=== PATIENT | female | born 1940 | race Caucasian/White ===

== ENCOUNTER 2019-04-16 14:55 | Outpatient (CLI) | payer MEDICARE, OTHER ==
--- NOTE | 2019-04-17 08:25 | Mammography Report ---
Reason: SCREENING MAMMO Procedure Date: 04/16/2019 Accession Number: [id number] / [id number] Procedure: MOOSE - Screening Mammo w/Sigifredo CPT Code: FULL RESULT: EXAM: Screening Mammo w/Sigifredo DATE: 04/16/2019 3:26 PM CLINICAL HISTORY: Screening encounter. History of late childbearing. TECHNIQUE: (B) - Bilateral CC and MLO views were obtained. COMPARISON: 05/27/2015 through 11/11/2009. PARENCHYMAL PATTERN: (A) - The breast(s) demonstrate(s) scattered fibroglandular densities. FINDINGS: Coarse typically benign appearing calcifications are again noted. There are no suspicious masses, calcifications, or areas of distortion. IMPRESSION: Benign findings. BI-RADS category 2. RECOMMENDATION: (ANNUAL) - Recommend routine annual screening mammography. BI-RADS CATEGORY: (2) - Benign Findings. STANDARD QUALIFYING STATEMENTS: 1. This examination was not reviewed with the aid of Computer-Aided Detection (CAD). 2. A negative or benign imaging report should not preclude biopsy if clinically suspicious findings are present. 3. Dense breasts may obscure an underlying neoplasm. 4. This examination was reviewed with the aid of 3D breast imaging (tomosynthesis).
== END 2019-04-16 14:56 | disposition home or self-care (01) ==
LOC: DI 14:55
DX: Z12.31 Encounter for screening mammogram for malignant neoplasm of breast (principal)
CPT/HCPCS: 77063; 77067

== ENCOUNTER 2020-06-14 18:28 | Outpatient (CLI) | payer MEDICARE, OTHER | END 2020-06-14 18:29 | disposition critical access hospital (66) | LOC: EMS 18:28 | PROVIDERS: ATTEND Surgery | DX: R55 Syncope and collapse (principal); R11.0 Nausea | CPT/HCPCS: A0425; A0427 ==

== ENCOUNTER 2020-06-14 18:44 | Observation (INO) | payer MEDICARE, OTHER ==
[2020-06-14 19:28] LABS: BASOPHILS # (AUTO) 0.1 10^3/uL (0.0-0.1); BASOPHILS % (AUTO) 0.5 %; EOSINOPHILS % (AUTO) 0.2 %; HGB - HEMOGLOBIN 12.8 g/dL (12.0-16.0); LYMPHOCYTES # (AUTO) 1.1 10^3/uL (1.5-3.5); MEAN CORPUSCULAR HEMOGLOBIN 30.5 pg (27.0-31.0); MEAN CORPUSCULAR HGB CONC 32.7 g/dL (32.0-36.0); MEAN CORPUSCULAR VOLUME 93.3 fL (81.0-99.0); MEAN PLATELET VOLUME 9.5 fL (7.9-10.8); MONOCYTES # (AUTO) 0.6 10^3/uL (0.0-1.0); MONOCYTES % (AUTO) 5.4 %; NEUTROPHILS # (AUTO) 9.4 10^3/uL (1.5-6.6); NEUTROPHILS % (AUTO) 83.5 %; PLT - PLATELET COUNT 226 10^3/uL (130-450); RED CELL DISTRIBUTION WIDTH 12.3 % (12.0-15.0); WHITE BLOOD COUNT 11.3 x10^3/uL (4.8-10.8)
[2020-06-14] MEDS ORDERED: ONDANSETRON 4 MG/2 ML VIAL IVP STA (19:30)
--- NOTE | 2020-06-14 19:33 | ED Physician Documentation ---
PD HPI SYNCOPE - Stated complaint Stated Complaint: SYNCOPE - Chief complaint Chief Complaint: Neuro - History obtained from History obtained from: Patient - History of Present Illness Witnessed: Unwitnessed ( heard her fall from the next room and was in there within moments and she was on the floor with her legs up on the chair talkative but seeming weak and complained of nausea. No headache or chest pain or belly pain) Timing - onset: How many minutes ago (20), Today (just [employer]) Duration: Seconds (Her heard her fall from the next room and came in to see her on the floor with the legs up on the chair. She was talkative and coherent but complained of nausea.) Preceding symptoms: None. No: Headache, Chest pain, Palpitations, Dyspnea, Abdominal pain, Nausea / vomiting Associated symptoms: No: Seizure Contributing factors: No: Recent med change, Decreased PO intake, Noxious stimulae Injury occurred: No: Head injury (she fainted while sitting in chair and awoke on floor, so presume would have hit head to some degree.), Neck injury Similar symptoms before: Has not had sx before Recently seen: Not recently seen Review of Systems Constitutional: denies: Fever, Chills Nose: denies: Rhinorrhea / runny nose, Congestion Throat: denies: Sore throat Cardiac: denies: Chest pain / pressure, Palpitations, Pedal edema, Calf pain Respiratory: denies: Dyspnea, Cough, Wheezing GI: reports: Nausea (onset after awakening on floor). denies: Abdominal Pain : denies: Dysuria Skin: denies: Rash Musculoskeletal: denies: Neck pain, Back pain Neurologic: reports: Generalized weakness (after the syncope). denies: Focal weakness, Difficulty speaking, Altered mental status, Headache Psychiatric: denies: Anxiety, Insomnia Endocrine: denies: Weight loss PD PAST MEDICAL HISTORY - Past Medical History Cardiovascular: High cholesterol, Other (previously discovered bundle branch block on outpt office test) Respiratory: None Neuro: None Endocrine/Autoimmune: None GI: None : None HEENT: None Psych: None Musculoskeletal: Osteoarthritis Derm: None - Past Surgical History Past Surgical History: No HEENT: Cataracts, Tonsil/Adenoidectomy - Present Medications Home Medications: Ambulatory Orders Medication Instructions Recorded Confirmed Spironolactone 25 mg PO BID 01/07/14 06/14/20 - Allergies Allergies/Adverse Reactions: Allergies Allergy/AdvReac Type Severity Reaction Status Date / Time No Known Drug Allergies Allergy Verified 06/14/20 18:53 - Social History Does the pt smoke?: No Smoking Status: Never smoker Does the pt drink ETOH?: Yes Does the pt have substance abuse?: No - Immunizations Immunizations are current?: Yes - POLST Patient has POLST: No PD ED PE NORMAL - Vitals Vital signs reviewed: Yes - General General: Alert and oriented X 3, Well developed/nourished, Other (appear uncomfortable due to nausea, with some pallor. ) - HEENT HEENT: Atraumatic, PERRL, EOMI (no nystagmus), Moist mucous membranes, Pharynx benign - Neck Neck: Supple, no meningeal sign, No bony TTP, No adenopathy - Cardiac Cardiac: RRR, No murmur - Respiratory Respiratory: Clear bilaterally, Other (no chestwall tenderness) - Abdomen Abdomen: Soft, Non tender - Female Female : Deferred - Rectal Rectal: Deferred - Back Back: No CVA TTP - Derm Derm: Normal color, Warm and dry - Extremities Extremities: No tenderness to palpate, Normal ROM s pain, No edema, No calf tenderness / cord - Neuro Neuro: Alert and oriented X 3, art objects supervisor 2-12 intact, No motor deficit, No sensory deficit, Normal speech Eye Opening: Spontaneous Motor: Obeys Commands Verbal: Oriented GCS Score: 15 Results - Vitals Vitals: Vital Signs - 24 hr 06/14/20 06/14/20 18:53 19:01 Temperature 36.6 C Heart Rate 86 80 Respiratory 16 12 Rate Blood Pressure 150/65 H 140/56 H O2 Saturation 99 100 Oxygen O2 Source Room air - EKG (time done) 18:57 Rate: Rate (enter#) (83) Rhythm: NSR Intervals: Prolonged SC, LBBB. No: Prolonged QT QRS: Normal Ischemia: Normal ST segments, Non specific changes - Labs Labs: Laboratory Tests 06/14/20 06/14/20 06/14/20 19:18 19:18 19:18 WBC 11.3 H RBC 4.20 Hgb 12.8 Hct 39.2 MCV 93.3 MCH 30.5 MCHC 32.7 RDW 12.3 Plt Count 226 MPV 9.5 Neut # (Auto) 9.4 H Lymph # (Auto) 1.1 L Archer # (Auto) 0.6 Eos # (Auto) 0.0 Baso # (Auto) 0.1 Absolute Nucleated RBC 0.00 Nucleated RBC % 0.0 D-Dimer 417.6 H Sodium 135 Potassium 4.2 Chloride 98 L Carbon Dioxide 25 Anion Gap 12.0 BUN 34 H Creatinine 0.9 Estimated GFR (MDRD) 61 L Glucose 103 H Lactic Acid Calcium 9.6 Total Bilirubin 0.8 AST 22 ALT 20 Alkaline Phosphatase 61 Troponin I High Sens Total Protein 7.3 Albumin 4.5 Globulin 2.8 Albumin/Globulin Ratio 1.6 Lipase 35 Urine Color Urine Clarity Urine pH Ur Specific [place] Urine Protein Urine Glucose (UA) Urine Ketones Urine Occult Blood Urine Nitrite Urine Bilirubin Urine Urobilinogen Ur Leukocyte Esterase Urine RBC Urine WBC Ur Squamous Epith Cells Urine Bacteria Ur Microscopic Review Urine Culture Comments 06/14/20 06/14/20 06/14/20 19:18 19:18 20:00 WBC RBC Hgb Hct MCV MCH MCHC RDW Plt Count MPV Neut # (Auto) Lymph # (Auto) Archer # (Auto) Eos # (Auto) Baso # (Auto) Absolute Nucleated RBC Nucleated RBC % D-Dimer Sodium Potassium Chloride Carbon Dioxide Anion Gap BUN Creatinine Estimated GFR (MDRD) Glucose Lactic Acid 1.0 Calcium Total Bilirubin AST ALT Alkaline Phosphatase Troponin I High Sens 6.1 7.5 Total Protein Albumin Globulin Albumin/Globulin Ratio Lipase Urine Color Urine Clarity Urine pH Ur Specific [place] Urine Protein Urine Glucose (UA) Urine Ketones Urine Occult Blood Urine Nitrite Urine Bilirubin Urine Urobilinogen Ur Leukocyte Esterase Urine RBC Urine WBC Ur Squamous Epith Cells Urine Bacteria Ur Microscopic Review Urine Culture Comments 06/14/20 21:19 WBC RBC Hgb Hct MCV MCH MCHC RDW Plt Count MPV Neut # (Auto) Lymph # (Auto) Archer # (Auto) Eos # (Auto) Baso # (Auto) Absolute Nucleated RBC Nucleated RBC % D-Dimer Sodium Potassium Chloride Carbon Dioxide Anion Gap BUN Creatinine Estimated GFR (MDRD) Glucose Lactic Acid Calcium Total Bilirubin AST ALT Alkaline Phosphatase Troponin I High Sens Total Protein Albumin Globulin Albumin/Globulin Ratio Lipase Urine Color YELLOW Urine Clarity HAZY Urine pH 6.0 Ur Specific [place] 1.020 Urine Protein NEGATIVE Urine Glucose (UA) NEGATIVE Urine Ketones 15 H Urine Occult Blood NEGATIVE Urine Nitrite POSITIVE H Urine Bilirubin NEGATIVE Urine Urobilinogen 0.2 (NORMAL) Ur Leukocyte Esterase NEGATIVE Urine RBC 0-5 Urine WBC 0-3 Ur Squamous Epith Cells FEW Squamous Urine Bacteria Many H Ur Microscopic Review INDICATED Urine Culture Comments INDICATED - Rads (name of study) chest xray Radiology: Prelim report reviewed (no acute process), See rad report chest CT-A Radiology: Prelim report reviewed (no PE. Left apical spiculated mass c/w bronchogenic CA with small nodes in chest. ), See rad report PD MEDICAL DECISION MAKING - ED course Complexity details: reviewed results (Elevated D-dimer. Normal initial troponin though soon after the event. She is still within the 2-hour timeframe even with the repeat troponin test. Not entirely conclusive. Her chest CT did not show any PEs but incidental lung tumor. Consider possible UTI but she does not appear septic.), re-evaluated patient (Improving but still persistent nausea. No vertigo nor worsening with head movement. Consider part of the process leading to syncope versus mild concussive from fall, though no headache. ), considered differential (Given the abrupt syncope without any preceding unusual feelings or symptoms, I would be concerned for potential seizure though the patient was lucid and without any confusion right after, or cardiovascular. Will check for troponin, D-dimer, heart rhythm), d/w patient ED course: I did tell the patient and her about the CT findings of left lung mass concerning for cancer and will need her PMD to orchestrate further workup for that. No apparent cause for the syncope at this point. Consider dysrhythmia. PE has been ruled out. Initial troponin not suggesting [place] but early on after event and syncope can be a presentation for that. Her underlying LBBB precludes evaluating for ischemic changes. Repeated troponins may be useful. Departure - Departure Disposition: ED Place in Observation Clinical Impression: Nausea, Generalized weakness, Abnormal CT scan, chest, Left bundle branch block Episode of syncope Qualifiers: Syncope type: unspecified Qualified Code(s): R55 - Syncope and collapse Condition: Stable Record reviewed to determine appropriate education?: Yes
--- NOTE | 2020-06-14 19:36 | XRAY Report ---
PROCEDURE: Chest 1 View X-Ray INDICATIONS: syncope TECHNIQUE: One view of the chest was acquired. COMPARISON: None FINDINGS: Surgical changes and devices: None. Lungs and pleura: No pleural effusions or pneumothorax. Lungs are clear. Mediastinum: Mediastinal contours appear normal. Heart size is normal. Bones and chest wall: No suspicious bony lesions. Overlying soft tissues appear unremarkable. IMPRESSION: No evidence acute pulmonary process. Reviewed by: Armaan Riggs MD on 06/14/2020 7:35 PM PDT Approved by: Armaan Riggs MD on 06/14/2020 7:35 PM PDT Station ID: [id number]
[2020-06-14 19:38] LABS: ALBUMIN 4.5 g/dL (3.2-5.5); ALBUMIN/GLOBULIN RATIO 1.6 (1.0-2.2); BILIRUBIN,TOTAL 0.8 mg/dL (0.2-1.0); CALCIUM 9.6 mg/dL (8.5-10.3); CREATININE 0.9 mg/dL (0.4-1.0); TOTAL PROTEIN 7.3 g/dL (6.7-8.2)
[2020-06-14] MEDS ORDERED: SODIUM CHLORIDE 0.9% 1,000 ML IV STA (19:49)
[2020-06-14] MEDS ORDERED: IOVERSOL 320 100 ML VIAL IVP ONE ×2 (20:02→20:31)
[2020-06-14] MEDS ORDERED: PROMETHAZINE INJ 6.25 MG in SODIUM CHLORIDE 0.9% 50 ML IV STA (20:12)
[2020-06-14] MEDS ORDERED: PROMETHAZINE 25 MG/1 ML VIAL ONE (20:26)
--- NOTE | 2020-06-14 20:47 | CT Report ---
PROCEDURE: ANGIO CHEST W/WO INDICATIONS: syncopal episode; elevated d-dimer CONTRAST: IV CONTRAST: Optiray 320 ml: 100 PO CONTRAST: *NO PO CONTRAST TECHNIQUE: After the administration of intravenous contrast, 2 mm thick sections acquired from the pulmonary api jacky to the posterior costophrenic angles. 3-dimensional maximum intensity projection (MIP) coronal a nd sagittal reformats were then acquired through the thorax. For radiation dose reduction, the follow ing was used: automated exposure control, adjustment of mA and/or kV according to patient size. COMPARISON: None FINDINGS: Image quality: Excellent. Pulmonary arteries: Pulmonary arteries are normal in size, and demonstrate no intraluminal filling d efects to suggest central pulmonary embolism. Lungs and pleura: There is a spiculated medial left apical lung mass consistent with a primary bronc hogenic carcinoma. It measures 2.6 cm in diameter. Reference image 58/6. There are numerous small pul monary nodules present throughout the left upper lobe, consistent with multifocal malignancy. Lungs a re clear. No pleural effusions or pneumothorax. Central and peripheral airways are patent. Mediastinum: Heart size is normal, without pericardial effusion. No mediastinal or hilar adenopathy . Thoracic aorta is normal in caliber and enhancement. Esophagus is normal in caliber, without hiat al hernia. Bones and chest wall: No suspicious bony lesions. Ribs and thoracic spine appear intact throughout. The thyroid is normal. No axillary or supraclavicular adenopathy. Abdomen: Visualized upper abdominal solid organs appear normal in the early arterial phase of enhanc ement. IMPRESSION: 1. No evidence acute pulmonary emboli. 2. 2.6 cm spiculated mass, medial left apex, consistent with primary bronchogenic carcinoma. 3. Numerous other small pulmonary nodules in the left upper lobe are suspicious for metastatic spread of tumor. Reviewed by: Armaan Riggs MD on 06/14/2020 8:46 PM PDT Approved by: Armaan Riggs MD on 06/14/2020 8:46 PM PDT Station ID: [id number]
[2020-06-14 21:29] LABS: BILIRUBIN,URINE NEGATIVE (NEGATIVE); GLUCOSE, URINE (UA) NEGATIVE (NEGATIVE); KETONES,URINE (UA) 15 mg/dL (NEGATIVE); LEUKOCYTE ESTERASE, URINE NEGATIVE (NEGATIVE); NITRITE,URINE POSITIVE (NEGATIVE); OCCULT BLOOD,URINE NEGATIVE (NEGATIVE); PROTEIN,URINE NEGATIVE (NEGATIVE); UROBILINOGEN,URINE 0.2 (NORMAL) E.U./dL (NORMAL)
[2020-06-14 21:31] LABS: CLARITY,URINE HAZY (CLEAR)
[2020-06-14] MEDS ORDERED: ONDANSETRON ODT 4 MG TABLET TL PRN (21:34)
[2020-06-14] MEDS ORDERED: SODIUM CHLORIDE FLUSH 0.9% 10 ML SYRINGE IVP PRN (21:34)
[2020-06-14] MEDS ORDERED: oxyCODONE 5 MG TABLET PO PRN (21:34)
[2020-06-14] MEDS ORDERED: ONDANSETRON 4 MG/2 ML VIAL IVP PRN (21:34)
[2020-06-14] MEDS ORDERED: ACETAMINOPHEN 325 MG TABLET PO PRN (21:34)
[2020-06-14 21:35] LABS: BACTERIA,URINE Many /HPF (None Seen); RBC,URINE 0-5 /HPF (0-5); SQUAMOUS EPITHELIAL CELL,UR FEW Squamous (<= Few)
--- NOTE | 2020-06-14 21:41 | HISTORY & PHYSICAL EXAMINATION ---
Chief Complaint - Chief Complaint Chief Complaint: Passing out at home History of Present Illness - Admitted From Admitted From:: Home via EMS - History Obtained From Records Reviewed: [facility] History obtained from: Dr. Julio Exam Limitations: None - History of Present Illness HPI Comment/Other: This is a 79-year-old female who is an active person who walks, gardens, and was sitting at her computer today when the next thing she knows she woke up on the floor after passing out. No antecedent warning. In the days previous there is been no change in status without fever, cough, chills. No change in urinary or bowel habits. She does not have high blood pressure, diabetes. She did have an episode of left arm numbness back in December 2013 for which she was seen in the emergency room. The numbness lasted about 25 minutes and in the end it was attributed to possibly sleeping on her arm the wrong way. When her came into the room, she was on the floor, legs up on the chair, and already speaking. So they feel that her loss of consciousness was momentary. After waking up from her syncope, she has been nauseated. No other complaints. No focal deficits. She is not on any medications that would slow down her heart rate. She has no history of valvular heart disease or cardiac arrhythmias. In the emergency room she was mildly hypertensive, afebrile, oxygenating normally. Physical exam is normal. Laboratory studies are normal. Troponin #1 and troponin #2 are normal.Telemetry has no arrhythmias. EKG has a new left bundle branch block and a first-degree AV block since 2013. Dr. Julio, feels that the patient warrants observation status for syncope. She will be placed on telemetry, and receive an echocardiogram tomorrow to complete work-up. 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 Left eye July 2016.), Tonsil/Adenoidectomy - Family & Social History Family History Comment/Other: Mom at age 87, had dementia the last 4 years of her life. Dad at 87 of complications of Parkinson's. 1 brother and 1 sister. Healthy. 1 son healthy. Living arrangement: At home Living Situation: With spouse/s.o. 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 [place] included [place], [place], [place] When he retired they came to live in [place] about 40 years ago. 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 They retired last year. She never smoked. Rarely drank alcohol. She has no history of recreational substance abuse. - Substance History Use: Uses substance without health or social issues: NONE Abuse: Recurrent use of substance despite neg consequences: NONE Dependence: Experiences withdrawal or developed tolerances: NONE - POLST Patient has POLST: No POLST Status: Full Code Meds/Allgy - Home Medications Home Medications: Ambulatory Orders Medication Instructions Recorded Confirmed Spironolactone 25 mg PO BID 01/07/14 06/14/20 - Allergies Allergies/Adverse Reactions: Allergies Allergy/AdvReac Type Severity Reaction Status Date / Time No Known Drug Allergies Allergy Verified 06/14/20 18:53 Review of Systems - All Other Systems All Other Systems: reports: Other (Completely negative review of systems. Constitutional, ENT, cardiovascular, respiratory, GI, , musculoskeletal, skin, and neurological review of systems all reviewed and negative.) Prior Level of Functionality: Independent with activities of daily living. Drives, pays bills, does not use any durable medical equipment. Today alone she hiked, was very active. Exam - Vital Signs Reviewed Vital Signs: Yes Vital Signs: Vital Signs x48h Temp Pulse Resp BP Pulse Ox 06/14/20 19:01 80 12 140/56 H 100 06/14/20 18:53 36.6 C 86 16 150/65 H 99 - Physical Exam General Appearance: positive: No acute distress, Alert, Other (Slender 48 kg white female who is 5 foot 3 inches tall. Able to get out of bed without any ataxia, no assist, to walk to bathroom on her own and get back in bed.) Eyes Bilateral: positive: PERRL, EOMI ENT: positive: Pharynx nml Neck: positive: No JVD. negative: Stiff neck Respiratory: positive: No respiratory distress. negative: Wheezes, Rales, Rhonchi Cardiovascular: positive: Regular rate & rhythm. negative: Systolic murmur, Gallop/S4, Friction rub Peripheral Pulses: positive: 1+ Abdomen: positive: Non-tender, No organomegaly, Nml bowel sounds, No distention Back: negative: CVA tenderness (R) Skin: positive: Warm, Dry. negative: Diaphoresis Extremities: positive: Full ROM, Nml appearance, No pedal edema Neurologic/Psychiatric: positive: Oriented x3, CN's nml (2-12), Motor nml, Sensation nml Conclusion/Plan - Problem List (1) Episode of syncope Conclusion/Plan: At this time there is no antecedent Warning. No prodrome. No symptoms of vasovagal syncope. There is no description of palpitations. Troponins are negative for RI. So the differential of cardiac arrhythmia such as second or third-degree block, V. tach, are not being found. She does not have a history of valvular heart disease and her cardiac exam is negative. She is not dehydrated with orthostatic hypotension. She is not infected. White cell count is mildly elevated but chest x-ray/CT shows only a lung mass no pneumonia or PE. Urinalysis is negative for infection. Plan: Observation status Telemetry for 24 hours 1 L of lactated Ringer's Echocardiogram for valvular heart disease Qualifiers: Syncope type: unspecified Qualified Code(s): R55 - Syncope and collapse (2) Abnormal CT scan, chest Conclusion/Plan: Present within neoplasm. Uncertain behavior. Dr. Julio has let the patient k now. Plan: Follow-up with primary care provider for subsequent work-up (3) Abnormal urinalysis Conclusion/Plan: Negative review of systems for UTI. Squamous cells in the specimen. With possible UTI and white cell count, unclear if this patient has UTI. Plan: Repeat clean-catch and if that urine is positive we will treat with oral antibiotics - Lab Results Lab results reviewed: Yes Fish Bones: 06/14/20 19:18 06/14/20 19:18 - Diagnostic Imaging Results Diagnostic Imaging Results: positive: Final report reviewed Diagnostic Imaging Results Comments: EXAM: [id number] CT/CHTANG ([id number]) PROCEDURE: ANGIO CHEST W/WO INDICATIONS: syncopal episode; elevated d-dimer CONTRAST: IV CONTRAST: Optiray 320 ml: 100 PO CONTRAST: *NO PO CONTRAST TECHNIQUE: After the administration of intravenous contrast, 2 mm thick sections acquired from the pulmonary apices to the posterior costophrenic angles. 3-dimensional maximum intensity projection (MIP) coronal and sagittal reformats were then acquired through the thorax. For radiation dose reduction, the following was used: automated exposure control, adjustment of mA and/or kV according to patient size. COMPARISON: None FINDINGS: Image quality: Excellent. Pulmonary arteries: Pulmonary arteries are normal in size, and demonstrate no intraluminal filling defects to suggest central pulmonary embolism. Lungs and pleura: There is a spiculated medial left apical lung mass consistent with a primary bronchogenic carcinoma. It measures 2.6 cm in diameter. Reference image 58/6. There are numerous small pulmonary nodules present throughout the left upper lobe, consistent with multifocal malignancy. Lungs are clear. No pleural effusions or pneumothorax. Central and peripheral airways are patent. Mediastinum: Heart size is normal, without pericardial effusion. No mediastinal or hilar adenopathy. Thoracic aorta is normal in caliber and enhancement. Esophagus is normal in caliber, without hiatal hernia. Bones and chest wall: No suspicious bony lesions. Ribs and thoracic spine appear intact throughout. The thyroid is normal. No axillary or supraclavicular adenopathy. Abdomen: Visualized upper abdominal solid organs appear normal in the early arterial phase of enhancement. IMPRESSION: 1. No evidence acute pulmonary emboli. 2. 2.6 cm spiculated mass, medial left apex, consistent with primary bronchogenic carcinoma. 3. Numerous other small pulmonary nodules in the left upper lobe are suspicious for metastatic spread of tumor. Reviewed by: Armaan Riggs MD on 06/14/2020 8:46 PM PDT Approved by: Armaan Riggs MD on 06/14/2020 8:46 PM PDT PROCEDURE: Chest 1 View X-Ray INDICATIONS: syncope TECHNIQUE: One view of the chest was acquired. COMPARISON: None FINDINGS: Surgical changes and devices: None. Lungs and pleura: No pleural effusions or pneumothorax. Lungs are clear. Mediastinum: Mediastinal contours appear normal. Heart size is normal. Bones and chest wall: No suspicious bony lesions. Overlying soft tissues appear unremarkable. IMPRESSION: No evidence acute pulmonary process. - EKG Results EKG Interpreted Independently: No EKG Comparison: Changed from prior EKG EKG Findings: Today:Sinus rhythm, first-degree AV block. Left bundle branch block. No previous EKG for comparison. In review of EKG from January 07, 2014, she had sinus rhythm, normal R wave progression, no left bundle branch block. No first-degree block. Core Measures - Anticipated LOS I expect patient to be DC'd or transferred within 96 hours.: Yes - DVT/VTE - Prophylaxis VTE/DVT Device ordered at admit?: Yes
[2020-06-14] MEDS ORDERED: LACTATED RINGERS 1,000 ML IV SCH (22:00)
[2020-06-15] MEDS: SODIUM CHLORIDE FLUSH 0.9% 10 ML SYRINGE IVP SCH ×2 (00:45→09:48)
[2020-06-15 06:08] LABS: BILIRUBIN,URINE NEGATIVE (NEGATIVE); GLUCOSE, URINE (UA) NEGATIVE (NEGATIVE); KETONES,URINE (UA) TRACE mg/dL (NEGATIVE); LEUKOCYTE ESTERASE, URINE NEGATIVE (NEGATIVE); NITRITE,URINE POSITIVE (NEGATIVE); OCCULT BLOOD,URINE NEGATIVE (NEGATIVE); PH,URINE 5.5 PH (5.0-7.5); PROTEIN,URINE NEGATIVE (NEGATIVE); UROBILINOGEN,URINE 0.2 (NORMAL) E.U./dL (NORMAL)
[2020-06-15 06:10] LABS: CLARITY,URINE CLEAR (CLEAR)
[2020-06-15 06:15] LABS: BACTERIA,URINE Few /HPF (None Seen); RBC,URINE 0-5 /HPF (0-5); SQUAMOUS EPITHELIAL CELL,UR RARE Squamous (<= Few)
[2020-06-15 07:40] LABS: BASOPHILS % (AUTO) 0.5 %; EOSINOPHILS % (AUTO) 0.5 %; LYMPHOCYTES # (AUTO) 1.5 10^3/uL (1.5-3.5); LYMPHOCYTES % (AUTO) 24.9 %; MEAN CORPUSCULAR HEMOGLOBIN 30.5 pg (27.0-31.0); MEAN CORPUSCULAR HGB CONC 32.4 g/dL (32.0-36.0); MEAN CORPUSCULAR VOLUME 94.1 fL (81.0-99.0); MEAN PLATELET VOLUME 9.2 fL (7.9-10.8); MONOCYTES # (AUTO) 0.7 10^3/uL (0.0-1.0); MONOCYTES % (AUTO) 10.7 %; NEUTROPHILS # (AUTO) 3.9 10^3/uL (1.5-6.6); NEUTROPHILS % (AUTO) 63.2 %; PLT - PLATELET COUNT 188 10^3/uL (130-450); RED BLOOD COUNT 3.93 10^6/uL (4.20-5.40); RED CELL DISTRIBUTION WIDTH 12.2 % (12.0-15.0); WHITE BLOOD COUNT 6.2 x10^3/uL (4.8-10.8)
[2020-06-15 07:48] LABS: CALCIUM 9.1 mg/dL (8.5-10.3)
[2020-06-15 08:42] LABS: MAGNESIUM 2.2 mg/dL (1.7-2.8); PHOSPHORUS 3.7 mg/dL (2.5-4.6)
--- NOTE | 2020-06-15 09:11 | PHARMACY PROGRESS NOTE ---
- Best Possible Medication History Admit Date and Time: 06/14/202133 Processed by: Pharmacy Medication History completed: Yes Patient Interview: Completed Secondary Source(s): Insurance records As the person ultimately responsible for medication therapy, providers are able to order a medication from an existing home medication list in [facility] via the "Reconcile Routine" prior to Confirmation of that medication by pit crew support worker. Such practice is discouraged except when the physician, in their clinical judgment, deems that a medical need exists for a medication without regard to previous use.
--- NOTE | 2020-06-15 14:10 | Discharge Plan ---
Discharge Plan Problem Reviewed?: Yes Disposition: Home, Self Care Condition: Stable Diet: Regular Activity Restrictions: Activity as Tolerated Instruction Topics: Understanding Vasovagal Syncope, Hypertension Pulmonary Health Concerns: You were seen in the hospital after you had a syncopal episode at home. It is felt that this was likely a vasovagal episode. We do not suspect this is re lated to your heart at this time. You were monitored while here in the hospital and you have not had signs of arrhythmias or irregular heart rhythm. An echocardiogram was obtained which did not reveal any significant abnormalities which could cause you to have a syncopal episode. It did reveal what is called pulmonary hypertension which is elevated blood pressure in the artery that supplies blood to your lungs. The cause of this is not clear but this likely does not explain your fainting episode. This should be followed on an outpatient basis and you may benefit from seeing a lung or claims support specialist. You did have a CT scan to look for blood clots and this was negative. Unfortunately, there was an lung mass noted that is approximately 2.5cm. This is concerning for cancer. You will need to follow-up with your primary care provider for further evaluation of this mass. Plan of Treatment: Please follow-up with your primary care provider for the lung mass. You should also follow-up with your primary care provider for the syncope as you may need a Holter monitor to ensure that you are not having abnormal heart rhythms when you are at home. There were no changes made to your medications. Care Goals: The goal is to prevent further syncopal episodes from occurring and to work-up the lung mass. Assessment: The patient expressed understanding of the treatment plan. Additional Instructions or Follow Up instructions: Please follow-up with your primary care provider within 1 week. No Smoking: If you smoke, Please STOP! Call for help. Follow-up with: Blue French MD [Primary Care Provider] -
--- NOTE | 2020-06-15 14:12 | DISCHARGE SUMMARY ---
"Discharge Summary Admit Date: 06/14/20 Discharge Date: 06/15/20 Discharging Provider: Khadar Sahni Primary Care Provider: Blue French Code Status: Attempt Resuscitation Condition at Discharge: Stable Discharge Disposition: 01 Home, Self Care - DIAGNOSES Admission Diagnoses: Episode of syncope Abnormal CT scan, chest Abnormal urinalysis Discharge Diagnoses with Status of Each Condition: Episode of syncope - resolved. Left lung mass - stable. Asymptomatic bacteriuria - stable. Pulmonary hypertension - stable. - HPI History of Present Illness: H&P per Dr. Arias: This is a 79-year-old female who is an active person who walks, gardens, and was sitting at her computer today when the next thing she knows she woke up on the floor after passing out. No antecedent warning. In the days previous there is been no change in status without fever, cough, chills. No change in urinary or bowel habits. She does not have high blood pressure, diabetes. She did have an episode of left arm numbness back in December 2013 for which she was seen in the emergency room. The numbness lasted about 25 minutes and in the end it was attributed to possibly sleeping on her arm the wrong way. When her came into the room, she was on the floor, legs up on the chair, and already speaking. So they feel that her loss of consciousness was momentary. After waking up from her syncope, she has been nauseated. No other complaints. No focal deficits. She is not on any medications that would slow down her heart rate. She has no history of valvular heart disease or cardiac arrhythmias. In the emergency room she was mildly hypertensive, afebrile, oxygenating normally. Physical exam is normal. Laboratory studies are normal. Troponin #1 and troponin #2 are normal.Telemetry has no arrhythmias. EKG has a new left bundle branch block and a first-degree AV block since 2013. Dr. Julio, feels that the patient warrants observation status for syncope. She will be placed on telemetry, and receive an echocardiogram tomorrow to complete work-up. - CONSULTS | PROCEDURES Procedures: Echocardiogram showed ejection fraction of 6065%. Right ventricle is normal in size and function. Mild tricuspid regurgitation. Moderately abnormal right heart pressures. The RVSP at rest is 60 mmHg - HOSPITAL COURSE Hospital Course: He was admitted to the floor after having a syncopal episode at home. Troponins were trended and these peaked at 15 before trending down. She was monitored on telemetry and had no evidence of arrhythmia. Her initial EKG did show new left bundle branch block and a first-degree AV block. An echocardiogram was obtained which showed a preserved ejection fraction without any significant valvular disease. Her RV function appeared normal. She did have moderately abnormal right heart pressures with RVSP of 60 mmHg. This was discussed with cardiology and they felt that she would benefit from a Holter monitor on outpatient basis and further work-up of the likely pulmonary hypertension. Her urinalysis did grow E. coli but she was asymptomatic and so this was not treated. CT angiogram on admission was negative for pulmonary embolism but did reveal a new 2.6 cm lung mass in the left apex. This was discussed with the patient and her primary care provider and she will need outpatient follow-up with oncology and further work-up of this mass. - ALLERGIES Allergies/Adverse Reactions: Allergies Allergy/AdvReac Type Severity Reaction Status Date / Time No Known Drug Allergies Allergy Verified 06/14/20 18:53 - MEDICATIONS Home Medications: Ambulatory Orders Medication Instructions Recorded Confirmed Spironolactone [Aldactone] 25 mg PO QPM 06/15/20 06/15/20 Spironolactone [Aldactone] 50 mg PO DAILY 06/15/20 06/15/20 - PHYSICAL EXAM AT DISCHARGE General Appearance: positive: No acute distress, Alert Eyes Bilateral: positive: Normal inspection, Conjunctivae nml ENT: positive: ENT inspection nml Neck: positive: Nml inspection Respiratory: positive: No respiratory distress. negative: Wheezes, Rales Cardiovascular: positive: Regular rate & rhythm, No murmur. negative: Tachycardia, Bradycardia, Systolic murmur Abdomen: positive: Non-tender, No distention. negative: Tenderness, Guarding, Rebound Skin: positive: Warm, Dry Extremities: positive: Full ROM, No pedal edema Neurologic/Psychiatric: positive: Oriented x3, Motor nml. negative: Disoriented to person, Disoriented to place, Disoriented to time Physical Exam Other/Comments: Vital Signs - 24 hr 06/14/20 06/14/20 06/14/20 18:53 19:01 21:42 Temperature 36.6 C Heart Rate 86 80 83 Heart Rate [ Brachial] Respiratory 16 12 18 Rate Blood Pressure 150/65 H 140/56 H 119/48 L Blood Pressure [Left Brachial artery] Blood Pressure [Right Brachial artery] O2 Saturation 99 100 100 06/14/20 06/15/20 06/15/20 22:43 05:00 08:08 Temperature 36.5 C 36.5 C 36.7 C Heart Rate Heart Rate [ 76 60 62 Brachial] Respiratory 20 16 18 Rate Blood Pressure Blood Pressure 121/45 L 102/49 L [Left Brachial artery] Blood Pressure 97/37 L [Right Brachial artery] O2 Saturation 100 97 99 06/15/20 06/15/20 11:30 16:31 Temperature 36.8 C 36.7 C Heart Rate Heart Rate [ 62 58 L Brachial] Respiratory 20 16 Rate Blood Pressure Blood Pressure 108/43 L [Left Brachial artery] Blood Pressure 111/46 L [Right Brachial artery] O2 Saturation 96 96 - LABS Result Diagrams: 06/15/20 07:35 06/15/20 07:35 - DIAGNOSTIC IMAGING Diagnostic Imaging Results: Final report reviewed - FOLLOW UP Follow Up: We will be following up with her primary care provider within 1 week. - TIME SPENT Time Spent in Discharge (Minutes): 31"
[2020-06-15 16:32] VITALS: BP 111/46
== END 2020-06-15 16:52 | disposition home or self-care (01) ==
LOC: EDUNIT# → ED 18:44 → MS2 21:34
PROVIDERS: ADMIT Specialist; ATTEND Internal Medicine
DX: R55 Syncope and collapse (principal); I27.20 Pulmonary hypertension, unspecified; R91.8 Other nonspecific abnormal finding of lung field; R82.71 Bacteriuria; I44.7 Left bundle-branch block, unspecified; I44.0 Atrioventricular block, first degree; E78.00 Pure hypercholesterolemia, unspecified; Z79.899 Other long term (current) drug therapy
CPT/HCPCS: 36415; 71045; 71275; 80048; 80053; 81001; 83605; 83690; 83735; 84100; 84443; 84484; 85025; 85379; 87040; 87086; 87181; 93005; 93306; 96365; 96375; 99284; 99285; G0378; J7040; J7120; Q9967; 81003

== ENCOUNTER 2020-08-30 19:48 | Emergency (ER) | payer MEDICARE, OTHER ==
--- NOTE | 2020-08-30 21:43 | ED Physician Documentation ---
PD HPI NVD - Stated complaint Stated Complaint: WEAKNESS,POST OP - Chief complaint Chief Complaint: Abd Pain - History obtained from History obtained from: Patient - History of Present Illness Timing - onset: Today, Yesterday Timing - duration: Days (1) Timing - details: Gradual onset, Still present Associated symptoms: Chest pain (at surgical wound), Loss of appetite. No: Fever, Abdominal pain, Near syncope / syncope Contributing factors: No: Sick contact, Bad food, Recent antibiotics Similar symptoms before: Has not had sx before Recently seen: Surgery (The patient states she had an upper left lobectomy last which is 5 days ago done at the . She was in the hospital for 2 days and discharged 3 days ago. She states she was doing okay though a bit nauseous with less appetite. She is doing her incentive spirometry. c/o weakness.) Review of Systems Constitutional: reports: Fatigue. denies: Fever, Chills, Myalgias Nose: denies: Rhinorrhea / runny nose, Congestion Throat: denies: Sore throat Respiratory: denies: Cough GI: reports: Nausea. denies: Abdominal Pain, Vomiting, Diarrhea : denies: Dysuria, Frequency Skin: denies: Rash Musculoskeletal: denies: Extremity swelling Neurologic: reports: Generalized weakness. 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 Left eye July 2016.), Tonsil/Adenoidectomy - Present Medications Home Medications: Ambulatory Orders Medication Instructions Recorded Confirmed Spironolactone [Aldactone] 25 mg PO QPM 06/15/20 06/15/20 Spironolactone [Aldactone] 50 mg PO DAILY 06/15/20 06/15/20 Ondansetron Odt [Zofran] 4 mg TL Q6H PRN #15 tablet 08/31/20 - Allergies Allergies/Adverse Reactions: Allergies Allergy/AdvReac Type Severity Reaction Status Date / Time No Known Drug Allergies Allergy Verified 08/30/20 20:01 - Social History Does the pt smoke?: No Smoking Status: Never smoker Does the pt drink ETOH?: Yes Does the pt have substance abuse?: No - Immunizations Immunizations are current?: Yes - POLST Patient has POLST: No POLST Status: Full Code PD ED PE NORMAL - Vitals Vital signs reviewed: Yes - General General: Alert and oriented X 3, No acute distress, Well developed/nourished - HEENT HEENT: Pharynx benign. No: Moist mucous membranes - Neck Neck: Supple, no meningeal sign, No adenopathy, No JVD - Cardiac Cardiac: RRR, No murmur - Respiratory Respiratory: Other (surgical wound left lateral appears good without signs of infection. ). No: Clear bilaterally (clear on right. Some decreased sounds left apex. ) - Abdomen Abdomen: Soft, Non tender - Back Back: No CVA TTP - Derm Derm: Normal color, Warm and dry - Extremities Extremities: No tenderness to palpate, Normal ROM s pain, No edema, No calf tenderness / cord - Neuro Neuro: Alert and oriented X 3, No motor deficit, Normal speech Results - Vitals Vitals: Vital Signs - 24 hr 08/30/20 08/30/20 08/31/20 20:01 20:07 00:07 Temperature 36.5 C 36.5 C 36.6 C Heart Rate 75 72 70 Respiratory 14 15 18 Rate Blood Pressure 135/53 H 135/58 H 140/62 H O2 Saturation 96 98 100 08/31/20 01:25 Temperature 36.6 C Heart Rate 70 Respiratory 16 Rate Blood Pressure 135/65 H O2 Saturation 100 Oxygen O2 Source Room air - Labs Labs: Laboratory Tests 08/30/20 08/30/20 08/30/20 22:35 22:35 23:27 WBC 5.4 RBC 4.15 L Hgb 12.5 Hct 39.0 MCV 94.0 MCH 30.1 MCHC 32.1 RDW 12.7 Plt Count 265 MPV 8.8 Neut # (Auto) 3.9 Lymph # (Auto) 0.9 L Kershaw # (Auto) 0.5 Eos # (Auto) 0.1 Baso # (Auto) 0.0 Absolute Nucleated RBC 0.00 Nucleated RBC % 0.0 Sodium 136 Potassium 4.5 Chloride 98 L Carbon Dioxide 28 Anion Gap 10.0 BUN 21 H Creatinine 0.8 Estimated GFR (MDRD) 69 L Glucose 109 H Calcium 9.5 Magnesium 2.0 Total Bilirubin 0.9 AST 87 H ALT 83 H Alkaline Phosphatase 95 Total Protein 6.8 Albumin 3.8 Globulin 3.0 Albumin/Globulin Ratio 1.3 Lipase 25 Urine Color YELLOW Urine Clarity CLEAR Urine pH 5.5 Ur Specific Shelby 1.020 Urine Protein NEGATIVE Urine Glucose (UA) NEGATIVE Urine Ketones 40 H Urine Occult Blood NEGATIVE Urine Nitrite NEGATIVE Urine Bilirubin NEGATIVE Urine Urobilinogen 0.2 (NORMAL) Ur Leukocyte Esterase NEGATIVE Ur Microscopic Review NOT INDICATED Urine Culture Comments NOT INDICATED - Rads (name of study) chest xray Radiology: Prelim report reviewed (post operative left upper lobectomy. No acute infiltrates. Small left effusion. ), See rad report PD MEDICAL DECISION MAKING - ED course Complexity details: re-evaluated patient (She states she is feeling a bit generally better after some IV fluids and antiemetic.), considered differential (She actually appears fairly well looking. No real signs of infection. We can check urine and chest x-ray and blood count and electrolytes. However I think she mostly is just under hydrated and feeling puny from that and being post- operative.), d/w patient Departure - Departure Disposition: 01 Home, Self Care Clinical Impression: Status post lung surgery, Generalized weakness, Dehydration Condition: Stable Record reviewed to determine appropriate education?: Yes Instructions: ED Dehydration Follow-Up: Blue French MD [Primary Care Provider] - Prescriptions: Ondansetron Odt [Zofran] 4 mg TL Q6H PRN #15 tablet PRN Reason: Nausea / Vomiting Comments: I presume you are not feeling well as not sure all after your surgery and likely combined with some dehydration and nausea. No signs of obvious infections at this time. Your basic electrolytes and blood count are okay. I would encourage frequent fluids. Add ondansetron if needed for nausea every 6 hours. Continue Tylenol 4 times daily regularly for pain and add your pain medicine if needed. Recheck if worsening symptoms over the next few days. Otherwise follow-up with your surgeon and primary care as planned. Discharge Date/Time: 08/31/20 01:37
[2020-08-30] MEDS ORDERED: ONDANSETRON 4 MG/2 ML VIAL ONE ×2 (22:46→23:49)
[2020-08-30] MEDS ORDERED: FAMOTIDINE 20 MG/2 ML VIAL IVP ONE (22:46)
[2020-08-31 00:08] LABS: BILIRUBIN,URINE NEGATIVE (NEGATIVE); CLARITY,URINE CLEAR (CLEAR); GLUCOSE, URINE (UA) NEGATIVE (NEGATIVE); KETONES,URINE (UA) 40 mg/dL (NEGATIVE); LEUKOCYTE ESTERASE, URINE NEGATIVE (NEGATIVE); NITRITE,URINE NEGATIVE (NEGATIVE); OCCULT BLOOD,URINE NEGATIVE (NEGATIVE); PH,URINE 5.5 PH (5.0-7.5); PROTEIN,URINE NEGATIVE (NEGATIVE); UROBILINOGEN,URINE 0.2 (NORMAL) E.U./dL (NORMAL)
[2020-08-31 00:17] LABS: BASOPHILS % (AUTO) 0.6 %; EOSINOPHILS # (AUTO) 0.1 10^3/uL (0.0-0.7); EOSINOPHILS % (AUTO) 1.1 %; HGB - HEMOGLOBIN 12.5 g/dL (12.0-16.0); LYMPHOCYTES # (AUTO) 0.9 10^3/uL (1.5-3.5); LYMPHOCYTES % (AUTO) 16.1 %; MEAN CORPUSCULAR HEMOGLOBIN 30.1 pg (27.0-31.0); MEAN CORPUSCULAR HGB CONC 32.1 g/dL (32.0-36.0); MEAN PLATELET VOLUME 8.8 fL (7.9-10.8); MONOCYTES # (AUTO) 0.5 10^3/uL (0.0-1.0); NEUTROPHILS # (AUTO) 3.9 10^3/uL (1.5-6.6); PLT - PLATELET COUNT 265 10^3/uL (130-450); RED BLOOD COUNT 4.15 10^6/uL (4.20-5.40); RED CELL DISTRIBUTION WIDTH 12.7 % (12.0-15.0); WHITE BLOOD COUNT 5.4 x10^3/uL (4.8-10.8)
[2020-08-31 00:18] LABS: ALBUMIN 3.8 g/dL (3.2-5.5); ALBUMIN/GLOBULIN RATIO 1.3 (1.0-2.2); BILIRUBIN,TOTAL 0.9 mg/dL (0.2-1.0); CALCIUM 9.5 mg/dL (8.5-10.3); CREATININE 0.8 mg/dL (0.4-1.0); TOTAL PROTEIN 6.8 g/dL (6.7-8.2)
[2020-08-31] MEDS ORDERED: ONDANSETRON ODT 4 MG Prepack 2 TL PRN (01:16)
[2020-08-31] MEDS ORDERED: ACETAMINOPHEN 325 MG TABLET PO STA (01:17)
[2020-08-31 01:26] VITALS: BP 135/65
--- OUTSIDE RECORDS SUMMARY | 2020-08-31 04:55 | EXTERNAL MEDICAL SUMMARY RPT | Continuity of Care Document ---
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, left bronchus or lung Allergies date description facility SULFA (SULFONAMIDE ANTIBIOTICS) [facility] SULFAMETHOXAZOLE [facility] SULFUR [facility] TRIMETHOPRIM [facility] NO KNOWN ALLERGIES [facility] [place] BEE VENOM PROTEIN (HONEY BEE) [facility] No Known Drug Allergies [facility] NO KNOWN ALLERGIES [facility] SULFA (SULFONAMIDE ANTIBIOTICS) [facility] NO KNOWN ALLERGIES [facility] LATEX, NATURAL RUBBER [facility] dical Center ALPRAZOLAM [facility] HYDROCHLOROTHIAZIDE [facility] SULFASALAZINE [facility] SERTRALINE [facility] BEE POLLEN [facility] OXYCODONE-ACETAMINOPHEN [facility] No Known Drug Allergies [facility] Results Social History date description facility [id number]
--- NOTE | 2020-08-31 08:25 | ED Physician Documentation ---
ED Addendum - Addendum Addendum: 08/31/20 08:24 Took call from radiologist, there was a discrepancy noting a very small left- sided pneumothorax. I left messages on both phone numbers listed to have her call us back, plan to bring her back for repeat chest x-ray. We will try again later if we have not heard from her soon.
--- NOTE | 2020-08-31 08:26 | XRAY Report ---
PROCEDURE: Chest 1 View X-Ray INDICATIONS: S/P LOBECTOMY, WEAKNESS TECHNIQUE: One view of the chest was acquired. COMPARISON: Chest x-ray 06/14/2020, chest CT 06/14/2020 FINDINGS: Surgical changes and devices: None. Lungs and pleura: There is a small left apical pneumothorax measuring approximately 3 mm. There is l eft-sided volume loss consistent with recent surgery with slight leftward shift of the mediastinum. T here is a probable left basilar pleural effusion. Left basilar opacities are demonstrated compatible with atelectasis or consolidation. Mediastinum: There is slight shift of the mediastinum. Heart size is normal. Bones and chest wall: No suspicious bony lesions. There is subcutaneous emphysema in the left chest wall. IMPRESSION: 1. Small left apical pneumothorax likely related to recent surgery but no prior postoperative studies are available for comparison. Findings discussed with Dr. Mendoza on 08/31/2020 at 8:20 AM. 2. Postsurgical changes consistent with recent left upper lobectomy with a probable left basilar pleu ral effusion as well as left basilar compressive atelectasis and consolidation. Reviewed by: Virgil Fischer MD on 08/31/2020 8:24 AM PST Approved by: Virgil Fischer MD on 08/31/2020 8:24 AM PST Station ID: [id number]
--- NOTE | 2020-08-31 11:12 | ED Physician Documentation ---
ED Addendum - Addendum Addendum: 08/31/20 11:12 I was able to reach her on repeat phone call. Overall she is feeling better this morning, but we discussed the findings and she will come back in a couple of hours for repeat chest x-ray.
== END 2020-08-31 01:37 | disposition home or self-care (01) ==
LOC: ED 19:48
DX: E86.0 Dehydration (principal); R53.1 Weakness; J95.811 Postprocedural pneumothorax; Y83.8 Other surgical procedures as the cause of abnormal reaction of the patient, or of later complication, without mention of misadventure at the time of the procedure; R11.0 Nausea
CPT/HCPCS: 71045; 80053; 81003; 83690; 83735; 85025; 99284; A9270; 81001; 87086

== ENCOUNTER 2020-08-31 15:14 | Emergency (ER) | payer MEDICARE, OTHER ==
--- NOTE | 2020-08-31 16:00 | XRAY Report ---
PROCEDURE: Chest 2 View X-Ray INDICATIONS: recheck ptx TECHNIQUE: 2 view(s) of the chest. COMPARISON: None. FINDINGS: Surgical changes and devices: None. Lungs and pleura: Previously noted tiny left apical pneumothorax has further decreased in size with m inimal amount of pneumothorax seen. Small to moderate left pleural effusion and left lower lung field atelectasis is seen. Mediastinum: Mediastinal contours are normal. Heart size is normal. Bones and chest wall: No suspicious bony abnormalities. Subcutaneous emphysema left lateral chest wa ll and left axilla is seen unchanged from earlier study. IMPRESSION: Interval further decrease in size of patient's known left apical pneumothorax. Small to moderate left pleural effusion with left lower lung field atelectasis. Stable appearing left lateral chest wall subcutaneous emphysema. Reviewed by: Angel Simpson MD on 08/31/2020 3:58 PM PST Approved by: Angel Simpson MD on 08/31/2020 3:58 PM PST Station ID: [id number]
--- NOTE | 2020-08-31 16:07 | ED Physician Documentation ---
History of Present Illness - Stated complaint Stated Complaint: WANTS XRAY - Chief complaint Chief Complaint: General - History obtained from History obtained from: Patient - Additonal information Additional information: See note and addenda from overnight. Briefly recently had cardiothoracic surgery and was seen overnight for pain. Over read of the x-ray this morning demonstrated a small pneumothorax and she was asked to come back for repeat evaluation. She is feeling better now. 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 Left eye July 2016.), Tonsil/Adenoidectomy - Present Medications Home Medications: Ambulatory Orders Medication Instructions Recorded Confirmed Spironolactone [Aldactone] 25 mg PO QPM 06/15/20 06/15/20 Spironolactone [Aldactone] 50 mg PO DAILY 06/15/20 06/15/20 Ondansetron Odt [Zofran] 4 mg TL Q6H PRN #15 tablet 08/31/20 - Allergies Allergies/Adverse Reactions: Allergies Allergy/AdvReac Type Severity Reaction Status Date / Time No Known Drug Allergies Allergy Verified 08/31/20 15:23 - Social History Does the pt smoke?: No Smoking Status: Never smoker Does the pt drink ETOH?: Yes Does the pt have substance abuse?: No - Immunizations Immunizations are current?: Yes - POLST Patient has POLST: No POLST Status: Full Code PD ED PE NORMAL - Vitals Vital signs reviewed: Yes - General General: Alert and oriented X 3, No acute distress - Neuro Neuro: Alert and oriented X 3, Normal speech Results - Vitals Vitals: Vital Signs - 24 hr 08/31/20 15:18 Temperature 35.9 C L Heart Rate 68 Respiratory 14 Rate Blood Pressure 149/52 H O2 Saturation 96 Oxygen O2 Source Room air PD MEDICAL DECISION MAKING - ED course ED course: Chest x-ray demonstrates decrease in known left apical pneumothorax and other findings related to the surgery. Given that it is improving, I do not think any specific intervention is needed; it is an expected postoperative finding. Departure - Departure Disposition: 01 Home, Self Care Clinical Impression: Pneumothorax on left Condition: Good Record reviewed to determine appropriate education?: Yes Instructions: ED Pneumothorax Spontaneous Comments: Followup with your Surgeon as scheduled. As discussed I recommend not flying for about 6 weeks, also no scuba diving or [place]. Return as needed for new or worsening symptoms.
[2020-08-31 16:15] VITALS: BP 147/55
== END 2020-08-31 16:15 | disposition home or self-care (01) ==
LOC: ED 15:14
DX: J95.811 Postprocedural pneumothorax (principal); E86.0 Dehydration; R53.1 Weakness; Y83.8 Other surgical procedures as the cause of abnormal reaction of the patient, or of later complication, without mention of misadventure at the time of the procedure; R11.0 Nausea
CPT/HCPCS: 71045; 71046; 80053; 81003; 83690; 83735; 85025; 99283; 99284; A9270; 81001; 87086

== ENCOUNTER 2021-10-11 14:02 | Outpatient (CLI) | payer MEDICARE, OTHER | END 2021-10-11 14:03 | disposition critical access hospital (66) | LOC: EMS 14:02 | DX: R55 Syncope and collapse (principal); R11.0 Nausea | CPT/HCPCS: A0425; A0427 ==

== ENCOUNTER 2021-10-11 14:16 | Observation (INO) | payer MEDICARE, OTHER ==
[2021-10-11 14:41] LABS: BASOPHILS # (AUTO) 0.1 10^3/uL (0.0-0.1); BASOPHILS % (AUTO) 0.8 %; EOSINOPHILS % (AUTO) 0.5 %; HCT - HEMATOCRIT 37.7 % (37.0-47.0); HGB - HEMOGLOBIN 12.2 g/dL (12.0-16.0); LYMPHOCYTES # (AUTO) 1.1 10^3/uL (1.5-3.5); LYMPHOCYTES % (AUTO) 18.5 %; MEAN CORPUSCULAR HGB CONC 32.4 g/dL (32.0-36.0); MEAN CORPUSCULAR VOLUME 92.9 fL (81.0-99.0); MEAN PLATELET VOLUME 9.4 fL (7.9-10.8); MONOCYTES # (AUTO) 0.5 10^3/uL (0.0-1.0); MONOCYTES % (AUTO) 8.8 %; NEUTROPHILS # (AUTO) 4.3 10^3/uL (1.5-6.6); NEUTROPHILS % (AUTO) 70.9 %; PLT - PLATELET COUNT 206 10^3/uL (130-450); RED BLOOD COUNT 4.06 10^6/uL (4.20-5.40); RED CELL DISTRIBUTION WIDTH 12.3 % (12.0-15.0)
[2021-10-11 15:02] LABS: ALBUMIN 4.4 g/dL (3.2-5.5); ALBUMIN/GLOBULIN RATIO 1.8 (1.0-2.2); BILIRUBIN,TOTAL 0.6 mg/dL (0.2-1.0); CALCIUM 9.4 mg/dL (8.5-10.3); CREATININE 0.9 mg/dL (0.4-1.0); POTASSIUM 4.2 mmol/L (3.5-5.0); TOTAL PROTEIN 6.9 g/dL (6.7-8.2)
--- NOTE | 2021-10-11 15:04 | ED Physician Documentation ---
PD HPI SYNCOPE - Stated complaint Stated Complaint: SYNCOPAL EPISODE/FALL - Chief complaint Chief Complaint: Trauma Hd/Nk - History obtained from History obtained from: Patient - Additional information Additional information: 81 yo with hx LBBB and hx Lung CA s/p lobectomy in August. Also acne on spironolactone. Also hx syncope with negative workups in the past. Today had syncope while emptying the veterinarian epidemiologist in the kitchenb. Thinks hit back of head. Thinks was unconscious for 1 minute. Recent dx UTI, on cipro since yesterday. 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: Other : None HEENT: None Psych: None Musculoskeletal: Osteoarthritis Derm: Other - Past Surgical History Past Surgical History: Yes HEENT: Cataracts, Tonsil/Adenoidectomy - Present Medications Home Medications: Ambulatory Orders Medication Instructions Recorded Confirmed Spironolactone [Aldactone] 50 mg PO DAILY 06/15/20 10/11/21 - Allergies Allergies/Adverse Reactions: Allergies Allergy/AdvReac Type Severity Reaction Status Date / Time No Known Drug Allergies Allergy Verified 10/11/21 14:28 - Social History Does the pt smoke?: No Smoking Status: Never smoker Does the pt drink ETOH?: Yes Does the pt have substance abuse?: No - Immunizations Immunizations are current?: Yes - POLST Patient has POLST: No POLST Status: Full Code PD ED PE NORMAL - Vitals Vital signs reviewed: Yes - General General: Alert and oriented X 3, No acute distress - HEENT HEENT: PERRL, EOMI, Ears normal, Moist mucous membranes, Pharynx benign, Dentition benign, Other (Contusion L parietal, non tender, no lac/abrasion.) - Neck Neck: Supple, no meningeal sign, No bony TTP - Cardiac Cardiac: RRR, No murmur - Respiratory Respiratory: No respiratory distress, Clear bilaterally - Abdomen Abdomen: Normal bowel sounds, Soft, Non tender - Back Back: No CVA TTP, No spinal TTP - Derm Derm: Normal color, Warm and dry - Extremities Extremities: No edema, No calf tenderness / cord - Neuro Neuro: Alert and oriented X 3, Normal speech Eye Opening: Spontaneous Motor: Obeys Commands Verbal: Oriented GCS Score: 15 - Psych Psych: Normal mood, Normal affect Results - Vitals Vitals: Vital Signs - 24 hr 10/11/21 10/11/21 10/11/21 14:24 14:55 14:58 Temperature 36.1 C L 36.4 C L Heart Rate 81 75 73 Respiratory 13 18 Rate Blood Pressure 153/84 H 149/60 H O2 Saturation 100 100 10/11/21 15:26 Temperature Heart Rate 75 Respiratory 22 Rate Blood Pressure 153/59 H O2 Saturation 100 Oxygen O2 Source Room air - EKG (time done) 1432 Rate: Rate (enter#) (79) Rhythm: NSR, LAE Sheridan: Normal Intervals: Prolonged AR, LBBB Compare to prior EKG: Unchanged from prior EKG (no change from 06/14/20) Computer interpretation: Agree with computer - Labs Labs: Laboratory Tests 10/11/21 10/11/21 10/11/21 14:35 14:35 14:35 WBC 6.0 RBC 4.06 L Hgb 12.2 Hct 37.7 MCV 92.9 MCH 30.0 MCHC 32.4 RDW 12.3 Plt Count 206 MPV 9.4 Neut # (Auto) 4.3 Lymph # (Auto) 1.1 L Sterling # (Auto) 0.5 Eos # (Auto) 0.0 Baso # (Auto) 0.1 Absolute Nucleated RBC 0.00 Nucleated RBC % 0.0 Sodium 136 Potassium 4.2 Chloride 101 Carbon Dioxide 26 Anion Gap 9.0 BUN 32 H Creatinine 0.9 Estimated GFR (MDRD) 60 L Glucose 114 H Calcium 9.4 Total Bilirubin 0.6 AST 25 ALT 21 Alkaline Phosphatase 70 Troponin I High Sens 6.7 Total Protein 6.9 Albumin 4.4 Globulin 2.5 Albumin/Globulin Ratio 1.8 Lipase 37 PD MEDICAL DECISION MAKING - ED course Complexity details: reviewed old records (Previous admission for syncope in May 2020, echo with good EF, mild TR. EKG unchanged from prior.) ED course: 81-year-old woman with nonpremonition of syncope. Scores high on the [place] syncope risk score, either 4-6 points depending on whether the history is "cardiac" or "neither." She is been worked up the past without clear diagnosis. The concern given the lack of premonition would be malignant arrhythmia. She has never been seen by a filling station attendant nor had prolonged cardiac monitoring for this. I discussed the case by phone with Elvis Mata who agrees that she would benefit from prolonged outpatient cardiac monitoring which should be available next week here. And spoke with Dr. Real for admission at 3:37 PM. Departure - Departure Disposition: ED Place in Observation Clinical Impression: Left bundle branch block Episode of syncope Qualifiers: Syncope type: unspecified Qualified Code(s): R55 - Syncope and collapse Condition: Stable
[2021-10-11] MEDS ORDERED: ACETAMINOPHEN 325 MG TABLET PO PRN (15:43)
[2021-10-11] MEDS ORDERED: ONDANSETRON 4 MG/2 ML VIAL IVP PRN (15:43)
[2021-10-11] MEDS ORDERED: SODIUM CHLORIDE FLUSH 0.9% 10 ML SYRINGE IVP PRN (15:43)
--- NOTE | 2021-10-11 15:56 | HISTORY & PHYSICAL EXAMINATION ---
Chief Complaint - Chief Complaint Chief Complaint: syncope History of Present Illness - Admitted From Admitted From:: medical floor - History Obtained From Records Reviewed: [facility], ER notes History obtained from: pt Exam Limitations: no - History of Present Illness HPI Comment/Other: This is a 81-year-old female with a past medical history with multiple episode of syncope with negative workup in the past, HTN, left lung mass with s/p lobectomy who present ER complain of syncope. pt had an unwitnessed syncopal episode in the home on today when she was emptying the racehorse trainer in the kitch. She report she was unconscious about 20-30 seconds. she believe to hit back of head on the counter. she report she feel nausea after she had syncope. she always feel nausea after she had syncope. She denies any injury. pt had recent syncope about one month ago when she was at [place] and hit her forehead with wound care at [facility]. Pt also report she was diagnosis of UTI on yesterday and she took Cipro since yesterday. Pt denies chest pain, shortness of breath, fever, chill. Troponin is negative for UT. EKG reveal LBBB as her hx, HR at 79, and long CT interval 221ms as her hx a first-degree AV block. in 05/[address] [facility] reveal preserved EF without valvular heart disease but with moderate abnormal right heart pressure and RVSP at 60mmHG. Medical team was consulted for warrants observation status for syncope. She will be placed on telemetry, and receive an echocardiogram to complete work-up. Discussed the care goal with the patient, patient hope to have full code History - Past Medical History Cardiovascular: reports: High cholesterol Respiratory: reports: None Neuro: reports: None Endocrine/Autoimmune: reports: None GI: reports: None SFDC CONSULTANT: reports: Other : reports: None HEENT: reports: None Psych: reports: None Musculoskeletal: reports: Osteoarthritis Derm: reports: Other MRSA Hx?: No - Past Surgical History HEENT: reports: Cataracts, Tonsil/Adenoidectomy - Family & Social History Family History Comment/Other: Mom at age 87, had dementia the last 4 years of her life. Dad at 87 of complications of Parkinson's. 1 brother and 1 sister. Healthy. 1 son healthy. Living Situation: With spouse/s.o. 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 [place], [place], [facility] retired they came to live in [place] about 40 years ago. 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 They retired last year. She never smoked. Rarely drank alcohol. She has no history of recreational substance abuse. - Substance History Use: Uses substance without health or social issues: NONE - POLST Patient has POLST: No POLST Status: Full Code Meds/Allgy - Home Medications Home Medications: Ambulatory Orders Medication Instructions Recorded Confirmed Spironolactone [Aldactone] 50 mg PO DAILY 06/15/20 10/11/21 - Allergies Allergies/Adverse Reactions: Allergies Allergy/AdvReac Type Severity Reaction Status Date / Time No Known Drug Allergies Allergy Verified 10/11/21 14:28 Review of Systems - Constitutional Constitutional: denies: Fever, Chills - Eyes Eyes: denies: Pain - Ears, Nose & Throat Ears, Nose & Throat: denies: Ear pain - Cardiovascular Cariovascular: reports: Syncope. denies: Palpitations, Chest pain, Exertional dyspnea, Decr. exercise tolerance - Respiratory Respiratory: denies: Cough, SOB at rest, SOB with exertion - Gastrointestinal Gastrointestinal: denies: Abdominal pain, Diarrhea, Nausea, Vomiting - Genitourinary Genitourinary: denies: Dysuria - Musculoskeletal Musculoskeletal: denies: Muscle pain - Neurological Neurological: denies: General weakness, Focal weakness, Headache, Dizziness, Numbness, Abnormal gait, Seizures, Incoordination, Slurred speech Exam - Vital Signs Vital Signs: Vital Signs x48h Temp Pulse Resp BP Pulse Ox 10/11/21 15:26 75 22 153/59 H 100 10/11/21 14:58 73 10/11/21 14:55 36.4 C L 75 18 149/60 H 100 10/11/21 14:24 36.1 C L 81 13 153/84 H 100 - Physical Exam General Appearance: positive: No acute distress, Alert. negative: Lethargic Eyes Bilateral: positive: Normal inspection, No lid inflammation ENT: positive: ENT inspection nml. negative: Purulent nasal drainage Neck: positive: Nml inspection, Trachea midline. negative: Tracheal deviation Respiratory: positive: Chest non-tender, No respiratory distress. negative: Wheezes, Rales Cardiovascular: positive: Regular rate & rhythm, Systolic murmur. negative: Tachycardia, Bradycardia Peripheral Pulses: positive: 2+ Abdomen: positive: Non-tender, Nml bowel sounds, No distention. negative: Tenderness Back: positive: Nml inspection Skin: positive: Color nml, Warm, Dry. negative: Cyanosis Extremities: positive: Non-tender, Full ROM, Nml appearance Neurologic/Psychiatric: positive: Oriented x3, Motor nml, Sensation nml. negative: Weakness, Sensory loss, Facial droop, Slurred/abnml speech, Depressed mood/affect Sepsis Event Note (H) - Evaluation Current Stage of Sepsis: Ruled out Conclusion/Plan - Problem List (1) Episode of syncope Conclusion/Plan: pt has of Multiple episode of syncope in the recent. At this time pt has no antecedent Warning, No prodrome, No symptoms of vasovagal syncope. pt denies hx of seizure. pt denies chest pain or palpitations. Troponins are negative for UT. pt has hx of LBBB and first degree AV block. But differential of cardiac arrhythmia such as second or third-degree block, V. tach, was not found in initial EKG. She also did not have a history of valvular heart disease in 2020 ECHO study and her cardiac exam is negative. pt has slight elevated BUN. she was diagnosis of UTI on yesterday and treated with Cipr. New Urinalysis is pending. Plan: Observation status health and safety technician pt orthostatic vital sign monitor 1 L of lactated Ringer's repeat Echocardiogram for valvular heart disease since the old was over one year ago Qualifiers: Syncope type: unspecified Qualified Code(s): R55 - Syncope and collapse (2) Status post lung surgery Conclusion/Plan: pt had hx of left upper lobe mass and she had lobotomy. Patient is hemodynamic stable now. we will continue vital sign monitor closely as well. pt may followup with her oncologist as out-pt (3) HTN (hypertension) Conclusion/Plan: hx of HTN, will resume her home spironolactone and continue vital monitor - Lab Results Fish Bones: 10/11/21 14:35 10/11/21 14:35 Core Measures - Anticipated LOS I expect patient to be DC'd or transferred within 96 hours.: Yes - DVT/VTE - Prophylaxis VTE/DVT Device ordered at admit?: Yes VTE/DVT Prophylaxis med ordered at admit?: Yes
--- NOTE | 2021-10-11 17:12 | XRAY Report ---
PROCEDURE: Chest 1 View X-Ray INDICATIONS: SOB TECHNIQUE: One view of the chest was acquired. COMPARISON: 08/31/2020 and 08/30/2020 and 06/14/2020 FINDINGS: Surgical changes and devices: None. Lungs and pleura: No pleural effusions or pneumothorax. Lungs are clear. Mediastinum: Mediastinal contours appear normal. Heart size is normal. Bones and chest wall: No suspicious bony lesions. Overlying soft tissues appear unremarkable. IMPRESSION: Chest without acute cardiopulmonary abnormalities. No focal airspace disease. Reviewed by: Beni Kirkpatrick MD on 10/11/2021 5:10 PM [facility] Approved by: Beni Kirkpatrick MD on 10/11/2021 5:10 PM [facility] Station ID: [id number]
[2021-10-11] MEDS ORDERED: SODIUM CHLORIDE 0.9% 1,000 ML IV SCH (17:30)
[2021-10-11 17:43] LABS: BILIRUBIN,URINE NEGATIVE (NEGATIVE); CLARITY,URINE CLEAR (CLEAR); GLUCOSE, URINE (UA) NEGATIVE (NEGATIVE); KETONES,URINE (UA) TRACE mg/dL (NEGATIVE); LEUKOCYTE ESTERASE, URINE NEGATIVE (NEGATIVE); NITRITE,URINE NEGATIVE (NEGATIVE); OCCULT BLOOD,URINE NEGATIVE (NEGATIVE); PH,URINE 5.5 PH (5.0-7.5); PROTEIN,URINE NEGATIVE (NEGATIVE); UROBILINOGEN,URINE 0.2 (NORMAL) E.U./dL (NORMAL)
[2021-10-11] MEDS: SODIUM CHLORIDE FLUSH 0.9% 10 ML SYRINGE IVP SCH (17:44)
[2021-10-11 17:46] LABS: BACTERIA,URINE Few /HPF (None Seen); RBC,URINE None Seen /HPF (0-5); SQUAMOUS EPITHELIAL CELL,UR RARE Squamous (<= Few); WBC,URINE 0-3 /HPF (0-5)
--- NOTE | 2021-10-11 18:27 | PHARMACY PROGRESS NOTE ---
- Best Possible Medication History Admit Date and Time: 10/11/21 1543 Processed by: Nursing Medication History completed: Yes As the person ultimately responsible for medication therapy, providers are able to order a medication from an existing home medication list in [facility] via the "Reconcile Routine" prior to Confirmation of that medication by product support specialist. Such practice is discouraged except when the physician, in their clinical judgment, deems that a medical need exists for a medication without regard to previous use.
[2021-10-12] MEDS: SODIUM CHLORIDE FLUSH 0.9% 10 ML SYRINGE IVP SCH ×2 (01:11→08:43)
[2021-10-12 05:09] LABS: BASOPHILS % (AUTO) 0.6 %; EOSINOPHILS # (AUTO) 0.1 10^3/uL (0.0-0.7); EOSINOPHILS % (AUTO) 0.8 %; HCT - HEMATOCRIT 35.7 % (37.0-47.0); HGB - HEMOGLOBIN 11.6 g/dL (12.0-16.0); LYMPHOCYTES # (AUTO) 1.4 10^3/uL (1.5-3.5); LYMPHOCYTES % (AUTO) 20.1 %; MEAN CORPUSCULAR HEMOGLOBIN 30.1 pg (27.0-31.0); MEAN CORPUSCULAR HGB CONC 32.5 g/dL (32.0-36.0); MEAN CORPUSCULAR VOLUME 92.5 fL (81.0-99.0); MEAN PLATELET VOLUME 9.8 fL (7.9-10.8); MONOCYTES # (AUTO) 0.9 10^3/uL (0.0-1.0); MONOCYTES % (AUTO) 12.2 %; NEUTROPHILS # (AUTO) 4.7 10^3/uL (1.5-6.6); NEUTROPHILS % (AUTO) 66.2 %; PLT - PLATELET COUNT 225 10^3/uL (130-450); RED BLOOD COUNT 3.86 10^6/uL (4.20-5.40); RED CELL DISTRIBUTION WIDTH 12.4 % (12.0-15.0); WHITE BLOOD COUNT 7.1 x10^3/uL (4.8-10.8)
[2021-10-12 05:16] LABS: CALCIUM 9.1 mg/dL (8.5-10.3); POTASSIUM 4.5 mmol/L (3.5-5.0)
--- NOTE | 2021-10-12 08:41 | Discharge Plan ---
Discharge Plan Problem Reviewed?: Yes Disposition: Home, Self Care Condition: Stable Diet: Cardiac Activity Restrictions: Activity as Tolerated Shower Restrictions: No (fall precaution) Instruction Topics: Syncope Health Concerns: syncope Plan of Treatment: Overnight alto singer show you have stable strip. Your ECHO study show stable and normal EF. your orthostatic blood pressure study show you are negative for orthostatic hypotension. You may followup with traffic signal supervisor maintenance as out- pt. You may resume your home medication. Care Goals: Stabilization and improvement of your medical conditions Assessment: Discussed the care plan with you, answered your questions, you understood Additional Instructions or Follow Up instructions: You may followup with your PCP in one week and have holter monitor, followup with traffic signal supervisor maintenance as out-pt. Should your symptoms return or worsen, you may present ER or call 911 for help. No Smoking: If you smoke, Please STOP! Call for help. Follow-up with: Blue French MD [Primary Care Provider] -
[2021-10-12] MEDS ORDERED: ENOXAPARIN 40 MG/0.4 ML SYRINGE SUBQ SCH (09:00)
--- NOTE | 2021-10-12 11:21 | DISCHARGE SUMMARY ---
Discharge Summary Admit Date: 10/11/21 Discharge Date: 10/12/21 Discharging Provider: Nader Falk Primary Care Provider: Blue Foy Condition at Discharge: Stable Discharge Disposition: 01 Home, Self Care Discharge Facility Name: home - DIAGNOSES Discharge Diagnoses with Status of Each Condition: (1) Episode of syncope pt is Hemodynamic stable. pt's tele overnight show first degree AV block when pt is deep sleep but no other arrhythmia. ECHO study show stable as ECHO study in 2020 with preserved EF without valvular heart disease. orthostatic vital sign is stable as well. It still is unclear etiology for her syncopy as pt's previous study on 2019. Discussed the care plan in detail with pt, Pt may followup with your PCP in one week and have holter monitor, followup with donation worker as out- pt (2)First degree AV block as pt's history. pt's tele overnight show first degree AV block when pt is deep sleep but no other arrhythmia. pt may have holter monitor with her PCP management, followup with donation worker as out-pt (3)LBBB as pt's history. pt may have holter monitor with her PCP management, followup with donation worker as out-pt (4)pulmonary hypertension as pt's history, slight improved on today ECHO study , RVSP is 57mmHG (5) Status post lung surgery stable, pt may followup with her oncologist as out-pt (6) HTN (hypertension) stable, pt may resume her home - HPI History of Present Illness: This is a 81-year-old female with a past medical history with multiple episode of syncope with negative workup in the past, HTN, left lung mass with s/p lobectomy who present ER complain of syncope. pt had an unwitnessed syncopal episode in the home on today when she was emptying the kiln drawer in the kitch. She report she was unconscious about 20-30 seconds. she believe to hit back of head on the counter. she report she feel nausea after she had syncope. she always feel nausea after she had syncope. She denies any injury. pt had recent syncope about one month ago when she was at [place] and hit her forehead with wound care at [facility]. Pt also report she was diagnosis of UTI on yesterday and she took Cipro since yesterday. Pt denies chest pain, shortness of breath, fever, chill. Troponin is negative for NM. EKG reveal LBBB as her hx, HR at 79, and long ME interval 221ms as her hx a first-degree AV block. in 05/2020 ECHO study reveal preserved EF without valvular heart disease but with moderate abnormal right heart pressure and RVSP at 60mmHG. Medical team was consulted for warrants observation status for syncope. She will be placed on telemetry, and receive an echocardiogram to complete work-up. Discussed the care goal with the patient, patient hope to have full code - ALLERGIES Allergies/Adverse Reactions: Allergies Allergy/AdvReac Type Severity Reaction Status Date / Time No Known Drug Allergies Allergy Verified 10/11/21 14:28 - MEDICATIONS Home Medications: Ambulatory Orders Medication Instructions Recorded Confirmed Spironolactone [Aldactone] 50 mg PO DAILY 06/15/20 10/11/21 - PHYSICAL EXAM AT DISCHARGE General Appearance: positive: No acute distress, Alert. negative: Lethargic Eyes Bilateral: positive: Normal inspection, No lid inflammation ENT: positive: ENT inspection nml, No signs of dehydration. negative: Purulent nasal drainage Neck: positive: Nml inspection, Trachea midline. negative: Tracheal deviation Respiratory: positive: Chest non-tender, No respiratory distress, Breath sounds nml. negative: Wheezes Cardiovascular: positive: Regular rate & rhythm. negative: Tachycardia, Bradycardia, Systolic murmur Peripheral Pulses: positive: 2+ Abdomen: positive: Non-tender, Nml bowel sounds, No distention. negative: Tenderness Back: positive: Nml inspection Skin: positive: Color nml, Warm, Dry. negative: Cyanosis Extremities: positive: Non-tender, Full ROM, Nml appearance Neurologic/Psychiatric: positive: Oriented x3, Motor nml, Sensation nml, Mood/affect nml. negative: Weakness, Sensory loss, Facial droop, Slurred/abnml speech, Depressed mood/affect - LABS Result Diagrams: 10/12/21 04:30 10/12/21 04:30 - SEPSIS Current Stage of Sepsis: Ruled out - FOLLOW UP Follow Up: Overnight pvc monitor show you have stable strip. Your ECHO study show stable and normal EF. your orthostatic blood pressure study show you are negative for orthostatic hypotension. You may followup with donation worker as out- pt. You may resume your home medication. You may followup with your PCP in one week and have holter monitor, followup with donation worker as out-pt. Should your symptoms return or worsen, you may present ER or call 911 for help. - TIME SPENT Time Spent in Discharge (Minutes): 30
[2021-10-12 11:32] VITALS: BP 129/51
== END 2021-10-12 12:16 | disposition home or self-care (01) ==
LOC: EDSEX → ED 14:16 → MS2 15:43
PROVIDERS: ADMIT Nurse Practitioner Gerontology; ATTEND Nurse Practitioner Gerontology
DX: R55 Syncope and collapse (principal); I44.7 Left bundle-branch block, unspecified; I44.0 Atrioventricular block, first degree; I27.20 Pulmonary hypertension, unspecified; I10 Essential (primary) hypertension; N39.0 Urinary tract infection, site not specified; Z90.2 Acquired absence of lung [part of]; S06.9X1A Unspecified intracranial injury with loss of consciousness of 30 minutes or less, initial encounter; W18.30XA Fall on same level, unspecified, initial encounter; Y92.000 Kitchen of unspecified non-institutional (private) residence as the place of occurrence of the external cause; Z20.822 Contact with and (suspected) exposure to COVID-19; E78.00 Pure hypercholesterolemia, unspecified
CPT/HCPCS: 36415; 71045; 80048; 80053; 81001; 83690; 84484; 85025; 87635; 93005; 93306; 96372; 99283; 99285; G0378; J1650; 87086

== ENCOUNTER 2021-10-17 07:47 | Outpatient (CLI) | payer MEDICARE, OTHER | END 2021-10-17 07:48 | disposition short-term general hospital (02) | LOC: EMS 07:47 | DX: R09.89 Other specified symptoms and signs involving the circulatory and respiratory systems (principal); R11.0 Nausea; I10 Essential (primary) hypertension | CPT/HCPCS: A0425; A0427 ==

== ENCOUNTER 2023-04-09 10:10 | Outpatient (CLI) | payer MEDICARE, OTHER | END 2023-04-09 23:59 | disposition critical access hospital (66) | LOC: EMS 10:10 | DX: R55 Syncope and collapse (principal); S01.01XA Laceration without foreign body of scalp, initial encounter; W19.XXXA Unspecified fall, initial encounter; Y93.E2 Activity, laundry; Y92.008 Other place in unspecified non-institutional (private) residence as the place of occurrence of the external cause | CPT/HCPCS: A0425; A0427 ==

== ENCOUNTER 2023-04-09 10:29 | Emergency (ER) | payer MEDICARE, OTHER ==
[2023-04-09] MEDS ORDERED: BUFFERED LIDOCAINE 10 ML SYRINGE SUBQ STA (11:11)
--- NOTE | 2023-04-09 11:11 | ED Physician Documentation ---
PD HPI SYNCOPE - Stated complaint Stated Complaint: SYNCOPE/GLF - Chief complaint Chief Complaint: Neuro - History obtained from History obtained from: Patient, Family - Additional information Additional information: 82-year-old man with history of recurrent syncope and has an implantable monitor in place for same. Its been for about a year, during that time she had not had any events. Today she was out in the garage doing laundry. She felt normal this morning. Without premonition she had a syncopal episode. Maybe as long as 10 minutes per the who found her. She hit her head and has a laceration on the right side. She did not know her tetanus status but as per the EMR she had 1 on 10/19/2013. She does not have chest pain or trouble breathing. No dizziness. She does feel nauseous and has a mild headache. She also has some chills. 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: Other : None HEENT: None Psych: None Musculoskeletal: Osteoarthritis Derm: Other - Past Surgical History Past Surgical History: Yes Ortho: Carpal Tunnel surgery HEENT: Cataracts, Tonsil/Adenoidectomy - Present Medications Home Medications: Ambulatory Orders Medication Instructions Recorded Confirmed Spironolactone [Aldactone] 50 mg PO DAILY 06/15/20 10/11/21 - Allergies Allergies/Adverse Reactions: Allergies Allergy/AdvReac Type Severity Reaction Status Date / Time Penicillins AdvReac Emesis Verified 04/09/23 10:48 - Social History Does the pt smoke?: No Smoking Status: Never smoker Does the pt drink ETOH?: Yes Does the pt have substance abuse?: No - Immunizations Immunizations are current?: Yes - POLST Patient has POLST: No POLST Status: Full Code PD ED PE NORMAL - Vitals Vital signs reviewed: Yes - General General: Alert and oriented X 3, No acute distress, Other (She seems fatigued and is having chills) - HEENT HEENT: PERRL, EOMI, Other (There is a 2 cm laceration on the right temporal area.) - Neck Neck: Supple, no meningeal sign, No bony TTP - Cardiac Cardiac: RRR, No murmur - Respiratory Respiratory: No respiratory distress, Clear bilaterally - Abdomen Abdomen: Non tender - Derm Derm: Normal color, Warm and dry - Extremities Extremities: No edema, No calf tenderness / cord - Neuro Neuro: Alert and oriented X 3, No motor deficit, No sensory deficit, Normal speech Eye Opening: Spontaneous Motor: Obeys Commands Verbal: Oriented GCS Score: 15 Results - Vitals Vitals: Vital Signs - 24 hr 04/09/23 04/09/23 04/09/23 10:39 11:02 13:02 Temperature 35.9 C L Heart Rate 78 85 82 Respiratory 14 19 20 Rate Blood Pressure 147/76 H 141/63 H 141/116 H O2 Saturation 98 98 99 04/09/23 16:17 Temperature Heart Rate 63 Respiratory 13 Rate Blood Pressure 118/53 L O2 Saturation 99 Oxygen O2 Source Room air - EKG (time done) 1211 EKG releavant findings:: EKG personally interpreted by author of this note. Relevant findings are: Rate: Rate (enter#) (74) Rhythm: NSR, LAE Intervals: LBBB Ischemia: Non specific changes Computer interpretation: Agree with computer - Labs Labs: Laboratory Tests 04/09/23 04/09/23 11:20 11:20 WBC 9.1 RBC 4.42 Hgb 13.3 Hct 41.5 MCV 93.9 MCH 30.1 MCHC 32.0 RDW 12.8 Plt Count 226 MPV 9.4 Neut # (Auto) 7.1 H Lymph # (Auto) 1.2 L [place] # (Auto) 0.6 Eos # (Auto) 0.0 Baso # (Auto) 0.1 Absolute Nucleated RBC 0.00 Nucleated RBC % 0.0 Sodium 140 Potassium 4.4 Chloride 104 Carbon Dioxide 31 Anion Gap 5.0 L BUN 31 H Creatinine 0.9 Estimated GFR (MDRD) 60 L Glucose 122 H Calcium 10.0 Magnesium 1.8 Total Bilirubin 0.5 AST 23 ALT 23 Alkaline Phosphatase 70 Total Protein 6.9 Albumin 4.4 Globulin 2.5 Albumin/Globulin Ratio 1.8 Ethyl Alcohol < 10.0 - Rads (name of study) CT head and cervical spine showing atrophy and degenerative disease in the spine without traumatic change. Relevant Findings:: Final report received, EMP independent interpretation of test Procedures - Laceration (location) R scalp Length in cm: 3 Wound type: Stellate Anesthesia: Lidocaine 1%, With bicarb Wound preparation: Irrigated copiously NS Skin layer closure: Nora Other: Patient tolerated well, No complications, Neurovascular intact, Tetanus UTD PD Medical Decision Making - ED course Complexity details: reviewed results (CBC unremarkable. CMP with modestly elevated BUN but she has been in this range before. Mild hyperglycemia. Blood alcohol negative..) ED course: 82-year-old gentleman with recurrent but very occasional syncope had a syncopal episode today. She has an implantable loop recorder in place. 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 Subsequently called [facility] and I spoke with the RN there several times who stated they had not gotten any data. We tried to have the peyton sync again but at that point the "symptom unloading checker" box was great out and we could not really sync with the loop recorder anymore. He recommended we call [facility] for troubleshooting. Subsequently her primary care physician, Sujit French called me and recommended checking urinalysis as she has had UTIs in the past. We discussed the findings so far otherwise. I discussed this with the patient, she does not feel like she has any symptoms of UTI declines UA testing. I called and spoke to the [employer] rep who stated that since there was no transmission, there was no arrhythmia. Departure - Departure Disposition: 01 Home, Self Care Clinical Impression: Left bundle branch block Episode of syncope Qualifiers: Syncope type: unspecified Qualified Code(s): R55 - Syncope and collapse Scalp laceration Qualifiers: Encounter type: initial encounter Qualified Code(s): S01.01XA - Laceration without foreign body of scalp, initial encounter Condition: Good Record reviewed to determine appropriate education?: Yes Instructions: ED Laceration Scalp Stitch Or Stap, ED Fainting Unkn Cause Comments: The [employer] rep told me that the lack of a transmission to [facility] means that there was probably no arrhythmia today which would suggest that your occasional recurrent syncope is from a cause other than an arrhythmia. For wound care on the scalp laceration, shampoo soap water showering etc. is just fine. The smiley need to come out in about 10 days. You can follow-up with your primary care physician for that, you should follow-up with your prima ry care physician regardless regarding this episode of syncope. Forms: PCP List
[2023-04-09 11:25] LABS: BASOPHILS # (AUTO) 0.1 10^3/uL (0.0-0.1); BASOPHILS % (AUTO) 0.7 %; EOSINOPHILS % (AUTO) 0.3 %; HCT - HEMATOCRIT 41.5 % (37.0-47.0); HGB - HEMOGLOBIN 13.3 g/dL (12.0-16.0); LYMPHOCYTES # (AUTO) 1.2 10^3/uL (1.5-3.5); LYMPHOCYTES % (AUTO) 13.5 %; MEAN CORPUSCULAR HEMOGLOBIN 30.1 pg (27.0-31.0); MEAN CORPUSCULAR VOLUME 93.9 fL (81.0-99.0); MEAN PLATELET VOLUME 9.4 fL (7.9-10.8); MONOCYTES # (AUTO) 0.6 10^3/uL (0.0-1.0); MONOCYTES % (AUTO) 6.5 %; NEUTROPHILS # (AUTO) 7.1 10^3/uL (1.5-6.6); NEUTROPHILS % (AUTO) 78.6 %; PLT - PLATELET COUNT 226 10^3/uL (130-450); RED BLOOD COUNT 4.42 10^6/uL (4.20-5.40); RED CELL DISTRIBUTION WIDTH 12.8 % (12.0-15.0); WHITE BLOOD COUNT 9.1 x10^3/uL (4.8-10.8)
[2023-04-09 11:55] LABS: ALBUMIN 4.4 g/dL (3.2-5.5); ALBUMIN/GLOBULIN RATIO 1.8 (1.0-2.2); ALKALINE PHOSPHATASE 70 IU/L (42-121); ALT ALANINE AMINOTRANSFERASE 23 IU/L (10-60); AST ASPARTATE AMINOTRANSFERASE 23 IU/L (10-42); BILIRUBIN,TOTAL 0.5 mg/dL (0.2-1.0); BUN - BLOOD UREA NITROGEN 31 mg/dL (6-20); CARBON DIOXIDE - CO2 31 mmol/L (21-32); CHLORIDE 104 mmol/L (101-111); CREATININE 0.9 mg/dL (0.6-1.3); ETOH - ETHANOL < 10.0 mg/dL; GFR - MDRD 60 (>89); GLUCOSE 122 mg/dL (74-104); MAGNESIUM 1.8 mg/dL (1.7-2.3); POTASSIUM 4.4 mmol/L (3.5-4.5); SODIUM 140 mmol/L (135-145); TOTAL PROTEIN 6.9 g/dL (6.4-8.9)
--- NOTE | 2023-04-09 12:58 | CT Report ---
PROCEDURE: HEAD WO INDICATIONS: head inj TECHNIQUE: Noncontrast 4.5 mm thick angled axial sections acquired from the foramen magnum to the vertex. For r adiation dose reduction, the following was used: automated exposure control, adjustment of mA and/or kV according to patient size. COMPARISON: None. FINDINGS: Image quality: Excellent. The ventricular system and cortical sulci demonstrate atrophy, consistent for patient's stated age. There are areas of hypodensity in the periventricular and subcortical white matter. There is no acut e intra or extra-axial fluid collection. No acute hemorrhage, mass lesion or midline shift. Brainst em is unremarkable. ] Right scalp laceration. Globes are symmetrical. Sinuses are aerated. Osseous structures are intact. IMPRESSION: 1. No acute intracranial process. 2. Moderate atrophy and chronic microvascular ischemic changes. Reviewed by: Tracy Hoffman MD on 04/09/2023 12:57 PM PDT Approved by: Tracy Hoffman MD on 04/09/2023 12:57 PM PDT Station ID: [id number]
[2023-04-09] MEDS ORDERED: ONDANSETRON 4 MG/2 ML VIAL IVP STA (13:21)
--- NOTE | 2023-04-09 13:40 | CT Report ---
PROCEDURE: CERVICAL SPINE WO INDICATIONS: haed inj TECHNIQUE: Noncontrast 3 mm thick sections acquired from the skull base to the T4 level. Sagittal and coronal r eformats were then constructed. For radiation dose reduction, the following was used: automated exp osure control, adjustment of mA and/or kV according to patient size. COMPARISON: None. FINDINGS: Image quality: Excellent. Bones: No fractures or dislocations. Visualized superior ribs are intact. Prominent multilevel deg enerative changes. Soft tissues: Prevertebral soft tissues are normal in thickness. No paravertebral hematomas. No ap ical pneumothoraces. IMPRESSION: Multilevel degenerative changes without visualized fracture. Reviewed by: Tracy Hoffman MD on 04/09/2023 1:39 PM PDT Approved by: Tracy Hoffman MD on 04/09/2023 1:39 PM PDT Station ID: [id number]
[2023-04-09 17:12] VITALS: BP 115/61; O2SAT 98
== END 2023-04-09 17:09 | disposition home or self-care (01) ==
LOC: EDUNIT# → ED 10:29
DX: S01.01XA Laceration without foreign body of scalp, initial encounter (principal); W19.XXXA Unspecified fall, initial encounter; I44.7 Left bundle-branch block, unspecified; R55 Syncope and collapse; E78.00 Pure hypercholesterolemia, unspecified; Z79.899 Other long term (current) drug therapy
CPT/HCPCS: 12002; 36415; 80053; 80320; 83735; 85025; 93005; 99284